=== PATIENT | male | born 1955 | race Caucasian/White ===

== ENCOUNTER 2017-07-28 10:09 | Day surgery (SDC) | payer BC ==
[~2017-07-28 10:09] MED LIST: CHONDR SU A NA/HYALUR INTRAOC KIT (SURGICARE) ONE; EPINEPHRINE INJ/PF 1 MG/1 ML AMPULE ONE; KETOROLAC TROMETHAMINE 0.45% 4 DROP/0.4 ML DROPERETTE OD PRN; LIDOCAINE 1% INJ-PF (10 MG/ML) 30 ML SDV ONE; TOBRAMYCIN SULFATE/DEXAMETH OPH OINTMENT 3.5 GM ONE
[2017-07-28] MEDS: TROPICAMIDE 1% OPH SOLN 3 ML OD PRN ×3 (10:34→11:12)
[2017-07-28] MEDS: CYCLOPENTOLATE 0.2%/PHENYLEPHRINE 1% OPH SOLN 2 ML OD PRN ×3 (10:34→11:12)
[2017-07-28] MEDS: BESIFLOXACIN HCL 0.6% OPH SUSP 5 ML BOTTLE OD PRN ×3 (10:35→11:38)
[2017-07-28] MEDS: TETRACAINE HCL 0.5% OPH SOLN 0.6 ML DROPERETTE OD PRN ×3 (10:36→11:17)
[2017-07-28] MEDS ORDERED: MIDAZOLAM 2 MG/2 ML INJ ONE ×2 (10:57)
== END 2017-07-28 12:25 | disposition home or self-care (01) ==
LOC: SC 10:09
PROVIDERS: ATTEND Ophthalmology
PROC: 089230Z Drainage of Right Anterior Chamber with Drainage Device, Percutaneous Approach (ICD-10-PCS; 2017-07-28)
PROC: 08RJ3JZ Replacement of Right Lens with Synthetic Substitute, Percutaneous Approach (ICD-10-PCS; principal; 2017-07-28 11:15)
DX: H25.11 Age-related nuclear cataract, right eye (principal); H40.1112 Primary open-angle glaucoma, right eye, moderate stage; E78.00 Pure hypercholesterolemia, unspecified; Z79.899 Other long term (current) drug therapy
CPT/HCPCS: 0191T; 66984; 142; C1783; J0171; J2250; J3490; V2630

== ENCOUNTER 2017-08-11 09:31 | Day surgery (SDC) | payer BC ==
[~2017-08-11 09:31] MED LIST changes: -KETOROLAC TROMETHAMINE 0.45% 4 DROP/0.4 ML DROPERETTE OD PRN; +KETOROLAC TROMETHAMINE 0.45% 4 DROP/0.4 ML DROPERETTE OS PRN
[2017-08-11] MEDS ORDERED: CHONDR SU A NA/HYALUR SOD 0.5 ML DISP.SYRIN ONE (09:40)
[2017-08-11] MEDS: TETRACAINE HCL 0.5% OPH SOLN 0.6 ML DROPERETTE OS PRN ×3 (09:50→10:18)
[2017-08-11] MEDS: TROPICAMIDE 1% OPH SOLN 3 ML OS PRN ×3 (09:51→10:11)
[2017-08-11] MEDS: CYCLOPENTOLATE 0.2%/PHENYLEPHRINE 1% OPH SOLN 2 ML OS PRN ×3 (09:51→10:11)
[2017-08-11] MEDS: BESIFLOXACIN HCL 0.6% OPH SUSP 5 ML BOTTLE OS PRN ×3 (09:52→10:37)
[2017-08-11] MEDS ORDERED: MIDAZOLAM 2 MG/2 ML INJ ONE (09:53)
== END 2017-08-11 10:08 | disposition home or self-care (01) ==
LOC: SC 09:31
PROVIDERS: ATTEND Ophthalmology
PROC: 089330Z Drainage of Left Anterior Chamber with Drainage Device, Percutaneous Approach (ICD-10-PCS; 2017-08-11)
PROC: 08RK3JZ Replacement of Left Lens with Synthetic Substitute, Percutaneous Approach (ICD-10-PCS; principal; 2017-08-11 10:00)
DX: H25.12 Age-related nuclear cataract, left eye (principal); H40.1122 Primary open-angle glaucoma, left eye, moderate stage; E78.00 Pure hypercholesterolemia, unspecified; Z98.41 Cataract extraction status, right eye
CPT/HCPCS: 0191T; 66984; 142; C1783; J0171; J2250; J3490; V2630